=== PATIENT | male | born 1960 | race Caucasian/White ===

== ENCOUNTER 2016-12-29 07:47 | Day surgery (SDC) | payer MEDICAID ==
[~2016-12-29 07:47] MED LIST: *CPAP; ALLOPURINOL100 M1 PO; ASPIRIN325 M3 PO; CLOPIDOGREL75 M1 PO; FISH OIL 1,2001 EAC5 PO; GLUCOTROL5 M1 PO; INVOKANA100 MG PO; METFORMIN HCL1000 M2 PO; METOPROLOL TART25 M1 PO; MULTIVITAMIN; PRINIVIL20 M1 PO; RANITIDINE HCL150 M2 PO; VITAMIN D31000 UNI3 PO; VITAMIN E400 UNI4 PO
== END 2016-12-29 14:45 ==
LOC: SRG 07:47 → SHSB 07:48 → ORE 10:06 → SHSB 12:29
PROC: 0LN70ZZ Release Right Hand Tendon, Open Approach (ICD-10-PCS; principal; 2016-12-29)
PROC: 01N40ZZ Release Ulnar Nerve, Open Approach (ICD-10-PCS; 2016-12-29)
PROC: 0MB30ZZ Excision of Right Elbow Bursa and Ligament, Open Approach (ICD-10-PCS; 2016-12-29)
DX: M65.341 Trigger finger, right ring finger (principal); G56.21 Lesion of ulnar nerve, right upper limb; M70.21 Olecranon bursitis, right elbow; I25.10 Atherosclerotic heart disease of native coronary artery without angina pectoris; I10 Essential (primary) hypertension; E78.5 Hyperlipidemia, unspecified; M19.90 Unspecified osteoarthritis, unspecified site; M10.9 Gout, unspecified; E11.9 Type 2 diabetes mellitus without complications; G47.33 Obstructive sleep apnea (adult) (pediatric); K21.9 Gastro-esophageal reflux disease without esophagitis; F17.210 Nicotine dependence, cigarettes, uncomplicated; I25.2 Old myocardial infarction; Z79.02 Long term (current) use of antithrombotics/antiplatelets; Z79.82 Long term (current) use of aspirin; Z79.84 Long term (current) use of oral hypoglycemic drugs; Z79.899 Other long term (current) drug therapy; Z91.040 Latex allergy status; Z86.73 Personal history of transient ischemic attack (TIA), and cerebral infarction without residual deficits; Z90.89 Acquired absence of other organs; Z95.1 Presence of aortocoronary bypass graft; Z98.890 Other specified postprocedural states
CPT/HCPCS: J0690; J1885